=== PATIENT | male | born 1945 | race Caucasian/White ===

== ENCOUNTER 2020-05-14 18:57 | Inpatient (IN) ==
--- NOTE | 2020-05-14 19:09 | Emergency Department Note ---
Neuro HPI General Chief Complaint: Stroke Symptoms Stated Complaint: Stroke symptoms Time Seen by Provider: 05/14/20 19:03 Source: patient and family Mode of arrival: wheelchair Limitations: no limitations History of Present Illness HPI Narrative: Narrative: The patient presents with a right-sided facial droop that was present when he awoke this morning but was not present when he went to bed last night. He says that he feels like he is drooling out of that side. He denies headache or any weakness or numbness below the neck. He says he feels slightly dizzy, as in things are spinning. This is not affected by movement. He denies visual problems. He denies any other associated problems. There has been no fever On Anticoagulants: No Related Data Home Medications Medication Instructions Recorded Confirmed ESSENTIAL Daily 1 tab PO QDAY 05/14/20 05/14/20 Glucosamine 2,000 mg PO QDAY 05/14/20 05/14/20 amlodipine 10 mg PO QDAY 05/14/20 05/14/20 aspirin 81 mg PO QDAY 05/14/20 05/14/20 atorvastatin 40 mg PO HS 05/14/20 05/14/20 cholecalciferol (vitamin D3) 25 mcg PO QDAY 05/14/20 05/14/20 insulin aspart U-100 [Novolog 60 unit SUBCUT QDAY 05/14/20 05/14/20 U-100 Insulin aspart] lisinopril 20 mg PO QDAY 05/14/20 05/14/20 metoprolol succinate 25 mg PO QDAY 05/14/20 05/14/20 omega 0-kum-ami-fish oil [Fish Oil] 1 cap PO QDAY 05/14/20 05/14/20 Allergies Allergy/AdvReac Type Severity Reaction Status Date / Time tape Allergy Uncoded 05/14/20 18:58 Review of Systems ROS ROS Narrative: Narrative: All systems ED: reviewed and negative except as stated. 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) CAD (coronary artery disease) (Acute) BPH (benign prostatic hyperplasia) (Acute) Acute CVA (cerebrovascular accident) (Acute) Social History Smoking Status: Never smoker Exam Narrative Narrative: Narrative: General Limitations: no limitations General appearance: Present alert and in no apparent distress Head Head: Present atraumatic and normal inspection Eye Eye: Present normal appearance, PERRL and EOMI; Absent nystagmus ENT ENT: Present normal exam and mucous membranes moist Neck Neck: Present normal inspection, full ROM and trachea midline; Absent meningismus Chest Chest: Present normal inspection and symmetric chest wall rise Respiratory Respiratory: Present normal lung sounds bilaterally; Absent respiratory distress Cardiovascular Cardiovascular: Present regular rate and normal rhythm Expanded Cardiovascular Peripheral pulses: 2+: radial (R) and radial (L) Adbominal Abdominal: Present soft; Absent distention and tenderness Extremities Extremities: Present normal inspection and full ROM Back Back: Present full ROM Neurological Neurological: Present alert, oriented X3 and motor sensory deficit; Absent CN II-XII intact Expanded Neurological Patient oriented to: Present person, place and time Speech: Present fluid speech; Absent receptive aphasia, expressive aphasia and dysarthria CRANIAL NERVES: EOM function (II, III, IV, ): Normal, facial sensation (V): Normal, facial palsy (VII): Abnormal Right (Mild and seems to disappear when the patient smiles) and tongue deviation (XII): Normal CEREBELLAR FUNCTION: finger to nose: Normal Motor strength - LUE: 5/5 Motor strength - RUE: 5/5 Motor strength - LLE: 5/5 Motor strength - RLE: 5/5 SENSORY EXAM UPPER EXTREMITY: Normal: light touch SENSORY EXAM LOWER EXTREMITY: Normal: light touch Psychiatric Psychiatric: Present normal affect and normal mood Skin Skin: Present warm and dry Course Reevaluation(s) Reevaluation #1: I spoke with the hospitalist, Dr. Olmedo. He agreed to evaluate for local admission Time: 20:03 Vital Signs Vital signs: Vital Signs Temperature 97.7 F 05/14/20 18:59 Pulse Rate 91 H 05/14/20 18:59 Respiratory Rate 16 05/14/20 18:59 Blood Pressure 175/72 05/14/20 18:59 Pulse Oximetry (%) 99 05/14/20 18:59 Temperature 97.7 F 05/14/20 18:59 Pulse Rate 83 05/14/20 20:43 Respiratory Rate 22 05/14/20 20:43 Blood Pressure 132/68 05/14/20 20:31 Pulse Oximetry (%) 99 05/14/20 20:43 MDM MDM Narrative Medical decision making narrative: Narrative: The patient presents with mild right facial droop that does not involve the forehead. His symptoms were present upon waking but not before going to bed l ast night. Concern is this gentleman has had a mild stroke. He is outside the window for thrombolytics. Plan to obtain appropriate labs and imaging and if CT is negative, give antiplatelets. Lab Data Lab results reviewed: Yes I reviewed the patient's lab results. Result diagrams: 05/14/20 19:11 05/14/20 19:11 Labs: Lab Results 05/14/20 05/14/20 05/14/20 Range/Units 19:11 19:11 19:11 WBC 6.7 (4.50-11.00) K/mcL RBC 4.75 (4.63-6.08) M/mcL Hgb 15.6 (13.7-17.5) g/dL Hct 45.9 (40.1-51.0) % MCV 96.6 (80.0-100.0) fL MCH 32.8 (26.0-34.0) pg MCHC 34.0 (31.0-36.0) g/dL RDW 12.2 (11.5-14.5) % Plt Count 180 (140-440) K/mcL MPV 11.3 H (7.4-10.4) fL Gran % 51.2 (38.0-78.0) % Lymph % (Auto) 37.4 (15.5-49.0) % [place] % (Auto) 8.6 (1.0-12.0) % Eos % (Auto) 1.9 (0.0-7.0) % Baso % (Auto) 0.9 (0.0-2.0) % Gran # 3.44 (1.80-8.00) K/mcL Lymph # (Auto) 2.52 (1.50-4.80) K/mcL [place] # (Auto) 0.58 (0.10-0.90) K/mcL Eos # (Auto) 0.13 (0.00-0.70) K/mcL Baso # (Auto) 0.06 (0.00-0.30) K/mcL PT TNP INR TNP APTT TNP Sodium 132 L (133-145) mmol/L Potassium 4.3 (3.3-5.1) mmol/L Chloride 95 L (96-108) mmol/L Carbon Dioxide 23 (22-30) mmol/L Anion Gap 14.0 (8-16) BUN 19 (8-23) mg/dl Creatinine 1.0 (0.7-1.2) mg/dl GFR Calculation 73 Glucose 170 H (70-105) mg/dL Calcium 9.7 (8.6-10.4) mg/dl Total Bilirubin 0.7 (0.0-1.0) mg/dL AST 25 (0-37) U/l ALT 19 (0-40) U/l Alkaline Phosphatase 83 (39-117) U/L Troponin T (0-0.03) ng/ml Total Protein 7.5 (5.9-8.4) gm/dL Albumin 4.6 (3.2-5.2) gm/dL Globulin 2.9 (2.2-3.7) gm/dL Albumin/Globulin Ratio 1.6 (1.0-2.3) 05/14/20 Range/Units 19:11 WBC (4.50-11.00) K/mcL RBC (4.63-6.08) M/mcL Hgb (13.7-17.5) g/dL Hct (40.1-51.0) % MCV (80.0-100.0) fL MCH (26.0-34.0) pg MCHC (31.0-36.0) g/dL RDW (11.5-14.5) % Plt Count (140-440) K/mcL MPV (7.4-10.4) fL Gran % (38.0-78.0) % Lymph % (Auto) (15.5-49.0) % [place] % (Auto) (1.0-12.0) % Eos % (Auto) (0.0-7.0) % Baso % (Auto) (0.0-2.0) % Gran # (1.80-8.00) K/mcL Lymph # (Auto) (1.50-4.80) K/mcL [place] # (Auto) (0.10-0.90) K/mcL Eos # (Auto) (0.00-0.70) K/mcL Baso # (Auto) (0.00-0.30) K/mcL PT INR APTT Sodium (133-145) mmol/L Potassium (3.3-5.1) mmol/L Chloride (96-108) mmol/L Carbon Dioxide (22-30) mmol/L Anion Gap (8-16) BUN (8-23) mg/dl Creatinine (0.7-1.2) mg/dl GFR Calculation Glucose (70-105) mg/dL Calcium (8.6-10.4) mg/dl Total Bilirubin (0.0-1.0) mg/dL AST (0-37) U/l ALT (0-40) U/l Alkaline Phosphatase (39-117) U/L Troponin T < 0.01 (0-0.03) ng/ml Total Protein (5.9-8.4) gm/dL Albumin (3.2-5.2) gm/dL Globulin (2.2-3.7) gm/dL Albumin/Globulin Ratio (1.0-2.3) Radiology Data Radiology results reviewed: Yes I reviewed the patient's radiology results. EKG Data EKG #1: EKG attestation: Yes I reviewed and interpreted this EKG. and Yes There are no EKG findings of acute coronary syndrome EKG results narrative: Sinus, rate 82, normal axis, normal intervals, narrow complex QRS, no acute ST or T changes worrisome for acute infarction Discharge Plan Patient/Caregiver Discharge Instructions Pt seen by PRIVATE CLIENT ADVISOR/PA only: No Clinical Impression: Acute CVA (cerebrovascular accident) Patient Disposition: Xfer As Outpt/Obs ([facility]) Follow up with: No,PCP [Primary Care Provider] - Prescriptions: No Action amlodipine 10 mg tablet 10 mg PO QDAY RF: 0 aspirin 81 mg Tablet,Delayed Release (Dr/Ec) 81 mg PO QDAY RF: 0 atorvastatin 40 mg tablet 40 mg PO HS RF: 0 lisinopril 20 mg tablet 20 mg PO QDAY RF: 0 insulin aspart U-100 [Novolog U-100 Insulin aspart] 100 unit/mL solution 60 unit subcut QDAY RF: 0 omega 9-yvv-wsz-fish oil [Fish Oil] 1,000 mg (120 mg-180 mg) Capsule 1 cap PO QDAY RF: 0 Glucosamine 2,000 mg PO QDAY RF: 0 cholecalciferol (vitamin D3) 25 mcg 25 mcg PO QDAY RF: 0 metoprolol succinate tablet 25 mg PO QDAY RF: 0 ESSENTIAL Daily 1 tab PO QDAY RF: 0
[2020-05-14] MEDS ORDERED: ASPIRIN 81 MG TAB.CHEW CHEWED ONE (19:53)
[2020-05-14 20:04] LABS: Basophils # (Auto) 0.06 K/mcL (0.00-0.30); Basophils % (Auto) 0.9 % (0.0-2.0); Eosinophils # (Auto) 0.13 K/mcL (0.00-0.70); Eosinophils % (Auto) 1.9 % (0.0-7.0); Granulocytes % (Auto) 51.2 % (38.0-78.0); Hematocrit 45.9 % (40.1-51.0); Hemoglobin 15.6 g/dL (13.7-17.5); Lymphocytes # (Auto) 2.52 K/mcL (1.50-4.80); Lymphocytes % (Auto) 37.4 % (15.5-49.0); Mean Cell Volume 96.6 fL (80.0-100.0); Mean Platelet Volume 11.3 fL (7.4-10.4); Monocytes # (Auto) 0.58 K/mcL (0.10-0.90); Monocytes % (Auto) 8.6 % (1.0-12.0); Platelet Count 180 K/mcL (140-440); RBC 4.75 M/mcL (4.63-6.08); Red Cell Distribution Width 12.2 % (11.5-14.5); WBC 6.7 K/mcL (4.50-11.00)
[2020-05-14 20:25] LABS: ALT/SGPT 19 U/l (0-40); AST/SGOT 25 U/l (0-37); Albumin 4.6 gm/dL (3.2-5.2); Albumin/Globulin Ratio 1.6 (1.0-2.3); Alkaline Phosphatase 83 U/L (39-117); Bilirubin,Total 0.7 mg/dL (0.0-1.0); Blood Urea Nitrogen 19 mg/dl (8-23); Calcium 9.7 mg/dl (8.6-10.4); Carbon Dioxide 23 mmol/L (22-30); Globulin 2.9 gm/dL (2.2-3.7); Glomerular Filtration Rate 73; Glucose 170 mg/dL (70-105)
[2020-05-14 20:31] LABS: Chloride 95 mmol/L (96-108)
[2020-05-14] MEDS ORDERED: ONDANSETRON 4 MG/2 ML VIAL IV PRN ×2 (20:39→21:56)
[2020-05-14] MEDS ORDERED: DEXTROSE 50% 50 ML VIAL IV PRN ×2 (20:44→21:56)
[2020-05-14] MEDS ORDERED: 0.9 % SODIUM CHLORIDE 1,000 ML IV SCH (20:45)
[2020-05-14] MEDS ORDERED: DOCUSATE SODIUM 100 MG CAPSULE PO SCH (21:00)
[2020-05-14] MEDS ORDERED: hydrALAZINE 20 MG/ML VIAL IV PRN ×2 (21:02→21:56)
[2020-05-14 21:46] LABS: Prothrombin Time 13.5 sec (11.9-14.5)
[2020-05-14] MEDS ORDERED: 0.9 % SODIUM CHLORIDE 10 ML SYRINGE IV SCH (22:00)
[2020-05-14 22:03] LABS: Hemoglobin A1C 6.6 % HGB (4.0-6.0)
[2020-05-14] MEDS: 0.9 % SODIUM CHLORIDE 10 ML SYRINGE IV SCH (22:09)
[2020-05-14] MEDS: 0.9 % SODIUM CHLORIDE 1,000 ML IV SCH (22:09)
[2020-05-14] MEDS ORDERED: IOPAMIDOL 100 ML BOTTLE IV ONE (22:26)
--- NOTE | 2020-05-14 23:21 | Internal Med History&Physical ---
HPI History of Present Illness Patient information: Note initiated : 05/14/20 at 11:19 pm Service Date, if different from initiated Date: [] Patient: George Gabriel 75 y/o M admitted on 05/14/20 for Stroke symptoms. Chief Complaint: [] History of present illness: Patient is a 75-year-old male with a history of high blood pressure and diabetes who presented to the ER due to right-sided facial droop associated with mild dizziness. As per patient, this morning when he woke up, he found this problem. Otherwise, he denies headache, nausea, vomiting, fever, chills, chest pain, abdominal pain, dysuria, or changes in vision. He has never had similar problem in the past. In the ER, CT of head showed lacunar infarct. Aspirin 325 mg was given. When I saw this patient in the ER, other than the symptoms mentioned above, patient was fine. Denied recent travel or sick contact. 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) CAD (coronary artery disease) (Acute) BPH (benign prostatic hyperplasia) (Acute) Acute CVA (cerebrovascular accident) (Acute) Social History smoking status: Never smoker MEDS/ALLERGIES Home Medications and Allergies Home Medications Medication Instructions Recorded Confirmed Type ESSENTIAL Daily 1 tab PO QDAY 05/14/20 05/14/20 History Glucosamine 2,000 mg PO QDAY 05/14/20 05/14/20 History amlodipine 10 mg PO QDAY 05/14/20 05/14/20 History aspirin 81 mg PO QDAY 05/14/20 05/14/20 History atorvastatin 40 mg PO HS 05/14/20 05/14/20 History cholecalciferol (vitamin D3) 25 mcg PO QDAY 05/14/20 05/14/20 History insulin aspart U-100 [Novolog 60 unit SUBCUT QDAY 05/14/20 05/14/20 History U-100 Insulin aspart] lisinopril 20 mg PO QDAY 05/14/20 05/14/20 History metoprolol succinate 25 mg PO QDAY 05/14/20 05/14/20 History omega 6-uxq-ugh-fish oil [Fish Oil] 1 cap PO QDAY 05/14/20 05/14/20 History Allergies Allergy/AdvReac Type Severity Reaction Status Date / Time tape Allergy Uncoded 05/14/20 18:58 EXAM Constitutional Vitals: Temp Pulse Resp BP Pulse Ox 97.7 F 74 16 125/69 96 05/14/20 21:54 05/14/20 21:54 05/14/20 21:54 05/14/20 21:54 05/14/20 21:54 Additional findings Additional findings: General - No acute distress Eyes - PERRLA, EOM intact ENT no rhinorrhea, no noticeable or palpable swelling, no redness or rash around throat or on face Neck supple, no JVD, no thyromegaly Respiratory: Lungs - CTA, no use of accessary muscles. Cardiovascular - RRR no m/r/g, GI - Normal bowel sounds, no distended, soft. Extremeties - No edema, cyanosis or clubbing Hemo/lymphatic/immune no lymphadenopathy Neurological Alert and oriented x 3, right nasolabial fold shallow. Otherwise strength and sensation symmetrical. Psychiatry flat affect DATA Data Completed and Pending Labs: Labs from last 24 hours 05/14/20 05/14/20 05/14/20 20:20 19:11 19:11 WBC RBC Hgb Hct MCV MCH MCHC RDW Plt Count MPV Gran % Lymph % (Auto) [place] % (Auto) Eos % (Auto) Baso % (Auto) Gran # Lymph # (Auto) [place] # (Auto) Eos # (Auto) Baso # (Auto) PT 13.5 INR 1.0 APTT 35 Sodium Potassium Chloride Carbon Dioxide Anion Gap BUN Creatinine GFR Calculation Glucose Hemoglobin A1c 6.6 H Estim Average Glucose 143 Calcium Total Bilirubin AST ALT Alkaline Phosphatase Troponin T < 0.01 Total Protein Albumin Globulin Albumin/Globulin Ratio 05/14/20 05/14/20 05/14/20 19:11 19:11 19:11 WBC 6.7 RBC 4.75 Hgb 15.6 Hct 45.9 MCV 96.6 MCH 32.8 MCHC 34.0 RDW 12.2 Plt Count 180 MPV 11.3 H Gran % 51.2 Lymph % (Auto) 37.4 [place] % (Auto) 8.6 Eos % (Auto) 1.9 Baso % (Auto) 0.9 Gran # 3.44 Lymph # (Auto) 2.52 [place] # (Auto) 0.58 Eos # (Auto) 0.13 Baso # (Auto) 0.06 PT TNP INR TNP APTT TNP Sodium 132 L Potassium 4.3 Chloride 95 L Carbon Dioxide 23 Anion Gap 14.0 BUN 19 Creatinine 1.0 GFR Calculation 73 Glucose 170 H Hemoglobin A1c Estim Average Glucose Calcium 9.7 Total Bilirubin 0.7 AST 25 ALT 19 Alkaline Phosphatase 83 Troponin T Total Protein 7.5 Albumin 4.6 Globulin 2.9 Albumin/Globulin Ratio 1.6 A/P Narrative A/P Narrative: 1. Stroke/TIA CT of head without contrast -ischemic lacunar infarct Not a candidate of TPA Patient has been on aspirin Discussed with the neurology Dr Apodaca at the [facility] in [place] who suggested to CT angiogram head and neck and MRI. Aspirin and Plavix for 3 weeks and then discontinue aspirin. EKG-sinus rhythm Echocardiogram Lipid panel, hemoglobin A1c, TSH, INR Aspirin 325 mg once was given in the ER Continue aspirin, Plavix and Lipitor Hydralazine as needed (as per Dr. Apodaca, SBP should not be greater than 180) N.p.o. until passing swallow screen PT OT ST 2. CAD, s/p stenting Aspirin, Plavix, Lipitor 3. HTN Amlodipine and lisinopril on hold Continue metoprolol Hydralazine as needed 4. DM (ADRIANA, treated as DM type 1) with neuropathy Continue insulin pump Insulin sliding scale 5. BPH Continue home medication 6. DVT prophylaxis: Lovenox 7. CODE STATUS: DNR and DNI Time Spent With Patient Time: Total time spent is greater than 50% in coordination of care (as documented) at patient's floor/unit and/or counseling patient:
--- NOTE | 2020-05-14 23:33 | Event Note ---
Event Note Event Note: Parties in Attendance: Patient and Decisional Capacity: Yes POLST form completed: not I explained the process regarding CPR and intubation. Both agreed with DNR/DNI.
[2020-05-15] MEDS ORDERED: INSULIN LISPRO 1 UNIT/0.01 ML UNIT SQ SCH
[2020-05-15] MEDS: INSULIN LISPRO 1 UNIT/0.01 ML UNIT SQ SCH ×4 (03:12→18:19)
[2020-05-15] MEDS: 0.9 % SODIUM CHLORIDE 10 ML SYRINGE IV SCH ×3 (06:04→21:49)
[2020-05-15 06:37] LABS: Appearance,Urine CLEAR; Bilirubin,Urine NEG (NEG); Color,Urine STRAW; Culture Indicated,Urine NO; Glucose,Urine (UA) NEGATIVE (NEG); Ketones,Urine 20 mg/dL (NEG); Leukocyte Esterase,Urine NEG /uL (NEG); Nitrate,Urine NEG (NEG); Protein,Urine NEG (NEG); Specific Gravity,Urine 1.023 (1.000-1.035); Urine Blood NEG mg/dL (<0.03); Urobilinogen,Urine NEG (NEG)
[2020-05-15 07:09] LABS: Basophils # (Auto) 0.04 K/mcL (0.00-0.30); Basophils % (Auto) 0.7 % (0.0-2.0); Eosinophils # (Auto) 0.24 K/mcL (0.00-0.70); Eosinophils % (Auto) 4.3 % (0.0-7.0); Granulocytes % (Auto) 43.7 % (38.0-78.0); Hematocrit 41.7 % (40.1-51.0); Hemoglobin 14.2 g/dL (13.7-17.5); Lymphocytes # (Auto) 2.32 K/mcL (1.50-4.80); Lymphocytes % (Auto) 41.5 % (15.5-49.0); Mean Cell Volume 96.3 fL (80.0-100.0); Mean Corpuscular HGB Conc 34.1 g/dL (31.0-36.0); Mean Platelet Volume 11.1 fL (7.4-10.4); Monocytes # (Auto) 0.55 K/mcL (0.10-0.90); Monocytes % (Auto) 9.8 % (1.0-12.0); Platelet Count 160 K/mcL (140-440); RBC 4.33 M/mcL (4.63-6.08); Red Cell Distribution Width 12.1 % (11.5-14.5); WBC 5.6 K/mcL (4.50-11.00)
[2020-05-15 07:31] LABS: Prothrombin Time 13.4 sec (11.9-14.5)
[2020-05-15] MEDS: ENOXAPARIN 40 MG/0.4 ML SYRINGE SQ SCH (08:22)
[2020-05-15] MEDS: ASPIRIN 81 MG TAB.CHEW PO SCH (08:22)
[2020-05-15] MEDS: DOCUSATE SODIUM 100 MG CAPSULE PO SCH ×2 (08:22→21:48)
[2020-05-15] MEDS: CLOPIDOGREL 75 MG TABLET PO SCH (08:22)
[2020-05-15] MEDS: METOPROLOL SUCCINATE 25 MG TAB.XL.24H PO SCH (08:22)
[2020-05-15 08:28] LABS: Thyroid Stimulating Hormone 3.34 uIU/ml (0.27-5.01); proBNP 212.8 pg/ml (0-450)
[2020-05-15 08:40] LABS: ALT/SGPT 15 U/l (0-40); AST/SGOT 21 U/l (0-37); Albumin 3.9 gm/dL (3.2-5.2); Albumin/Globulin Ratio 1.6 (1.0-2.3); Alkaline Phosphatase 64 U/L (39-117); Bilirubin,Total 0.8 mg/dL (0.0-1.0); Blood Urea Nitrogen 13 mg/dl (8-23); Calcium 8.9 mg/dl (8.6-10.4); Carbon Dioxide 23 mmol/L (22-30); Chloride 101 mmol/L (96-108); Globulin 2.5 gm/dL (2.2-3.7); Glomerular Filtration Rate 87; Glucose 92 mg/dL (70-105); HDL Cholesterol 72 mg/dl (>40); LDL Cholesterol,Calculated 36 mg/dl (SEE CHART); Non-HDL Cholesterol 46 (LDL TARGET+30); Triglycerides 51 mg/dl (<150)
[2020-05-15] MEDS ORDERED: METOPROLOL SUCCINATE 25 MG PO SCH (09:00)
[2020-05-15] MEDS ORDERED: NON FORMULARY MEDICATION 1 DOSE MISCELL (Aspirin 81 MG) PO SCH (09:00)
[2020-05-15] MEDS ORDERED: ENOXAPARIN 40 MG/0.4 ML SYRINGE SQ SCH (09:00)
[2020-05-15] MEDS ORDERED: CLOPIDOGREL 75 MG TABLET PO SCH (09:00)
--- NOTE | 2020-05-15 10:05 | XRay Report ---
HISTORY: New onset facial weakness and recent stent placement FINDINGS: The lungs are clear and well expanded. The heart size is normal. No radiopaque stent is identified within the thorax. There is no congestive heart failure. Mediastinum, carolyn and pleura are normal. There has been no significant change since 12/12/16. IMPRESSION: Normal chest Interpreted and Authenticated by: Tae Montemayor 05/15/20
--- NOTE | 2020-05-15 10:08 | Cat Scan Report ---
History: Stroke with New onset right-sided facial weakness TECHNIQUE: The brain was imaged without contrast at 2.5 mm intervals. Sagittal and coronal reformats were created. FINDINGS: In the left davies radiata lateral to the mid body left lateral ventricle there is a 7 mm low-attenuation structure. This could be an infarct. It is in the distribution which could cause a right facial weakness. No cortical infarct is detected. There are several areas of patchy decreased attenuation in the centrum semiovale throughout the frontal and parietal lobes bilaterally consistent with age-related ischemia or degeneration. There is also mild generalized atrophy. No hemorrhage or mass effect are present. The ventricles are normal in size allowing for the atrophy. Incidentally noted is ossification of the falx. IMPRESSION: Moderate white matter ischemia or degeneration in the frontal and parietal lobes bilaterally. 7 mm lacunar infarct in the left davies radiata Dr. Beverly was called with results Interpreted and Authenticated by: Tae Montemayor 05/15/20
--- NOTE | 2020-05-15 10:22 | Cat Scan Report ---
History: New stroke symptoms with right facial weakness TECHNIQUE: Following injection of intravenous nonionic contrast the patient was scanned during the arterial phase from the aortic arch to the top of the head. Sagittal and coronal reformats of the head and neck were created separately. 3-D volume rendered images were created of the carotid arteries. Radiation exposure was limited using dose reduction technology. FINDINGS: NECK: The aortic arch great vessels arising from the aorta are normal in caliber. There is moderate amount of plaque at the origin of the right subclavian artery. This is not causing stenosis. Moderate amount calcified plaque is present in the carotid bifurcations bilaterally. These are causing less than 25% stenosis. There is no evidence of ulcerated plaque or thrombus. Remainder the common, internal and external carotids are normal. The left vertebral artery is dominant. The right vertebral artery is hypoplastic. There is an incidental 9 mm round low-attenuation nodule in the left lobe of the thyroid. Brain: Moderate amount of calcified plaque is present in the cavernous portions of both internal carotids. These are causing up to 50% stenoses. The supraclinoid portions of both internal carotids are normal in caliber and symmetric. The left vertebral arteries supplies nearly all the blood flow to the basilar artery. Right vertebral supplies the right posterior inferior cerebellar. There is no intracranial vascular occlusion or hemodynamically significant stenosis. There is also no thrombosis. No aneurysm or vascular malformation are present. The anterior and middle cerebral arteries are normal. IMPRESSION: Atherosclerosis in the carotid bifurcations bilaterally and in the cavernous portions of both internal carotids. These are not causing hemodynamically significant stenosis. No evidence of thrombosis or vascular occlusion Interpreted and Authenticated by: Tae Montemayor 05/15/20
[2020-05-15] MEDS: 0.9 % SODIUM CHLORIDE 1,000 ML IV SCH (15:18)
--- NOTE | 2020-05-15 18:30 | Internal Med Progress Note ---
SUBJECTIVE Subjective Patient information: Note initiated : 05/15/20 at 6:26 pm Service Date, if different from initiated Date: [] Patient: George Gabriel 75 y/o M admitted on 05/14/20 for Stroke symptoms. Chief Complaint: [] History of present illness: Patient is a 75-year-old male with a history of high blood pressure and diabetes who presented to the ER due to right-sided facial droop associated with mild dizziness. As per patient, this morning when he woke up, he found this problem. Otherwise, he denies headache, nausea, vomiting, fever, chills, chest pain, abdominal pain, dysuria, or changes in vision. He has never had similar problem in the past. In the ER, CT of head showed lacunar infarct. Aspirin 325 mg was given. When I saw this patient in the ER, other than the symptoms mentioned above, patient was fine. Denied recent travel or sick contact. 05/15 Patient still has a right lower facial weakness and complaining of drooping sometimes and dizziness. Denies headache. No weakness or numbness over both legs and the arms. Vital signs are stable CT angio head and neck no hemodynamic significance. Waiting for MRI. Review of Systems All systems: reviewed and no additional remarkable complaints except as stated Constitutional Vitals: Vital Signs Temp Pulse Resp BP Pulse Ox 98.3 F 70 18 105/89 99 05/15/20 16:01 05/15/20 18:00 05/15/20 18:00 05/15/20 18:00 05/15/20 18:00 Period Temp Pulse Resp BP Sys/Whitney Pulse Ox Last 24 Hr 97.7 F-99.0 F 56-92 12-27 105-175/59-98 94-100 Intake and Output 05/15/20 05/15/20 05/15/20 05:59 13:59 21:59 Intake Total 2080 420 Output Total 1400 600 500 Balance -1400 1480 -80 Weight 104.916 kg Intake & Output: Intake & Output 05/15/20 05/15/20 05/15/20 05:59 13:59 21:59 Intake Total 2080 420 Output Total 1400 600 500 Balance -1400 1480 -80 Weight 104.916 kg Intake: IV 1000 Sodium Chloride 0.9% 1,000 ml @ 1000 75 mls/hr IV .[id number] JASON Rx#: [id number] Oral 1080 420 Output: Void Amount 1400 600 500 Other: Meal Breakfast Percent of Meal Consumed 100% Feeding Ability Independent Urine Appearance Clear Clear Urine Color Dark Yellow Dark Yellow Bright Yellow Urine Odor Strong # Bowel Movements 0 Additional findings Additional findings: General - No acute distress Eyes - PERRLA, EOM intact ENT no rhinorrhea, no noticeable or palpable swelling, no redness or rash around throat or on face Neck supple, no JVD, no thyromegaly Respiratory: Lungs - CTA, no use of accessary muscles. Cardiovascular - RRR no m/r/g, GI - Normal bowel sounds, no distended, soft. Extremeties - No edema, cyanosis or clubbing Hemo/lymphatic/immune no lymphadenopathy Neurological Alert and oriented x 3, right nasolabial fold shallow. Otherwise strength and sensation symmetrical. Psychiatry flat affect OBJ DATA Labs CBC & Chem 7: 05/15/20 05:40 05/15/20 05:40 Labs: Abnormal Lab Results 05/15/20 05/15/20 05/14/20 05:40 05:13 19:11 RBC 4.33 L MPV 11.1 H Sodium Chloride Glucose Hemoglobin A1c 6.6 H Urine Ketones 20 A 05/14/20 05/14/20 19:11 19:11 RBC MPV 11.3 H Sodium 132 L Chloride 95 L Glucose 170 H Hemoglobin A1c Urine Ketones Meds: Medications Aspirin (Aspirin) 81 mg PO DAILY [facility] Last Admin: 05/15/20 08:22 Dose: 81 mg Documented by: Atorvastatin Calcium (Lipitor) 40 mg PO [facility] Clopidogrel Bisulfate (Plavix) 75 mg PO DAILY [facility] Last Admin: 05/15/20 08:22 Dose: 75 mg Documented by: Dextrose (Dextrose 50%) 0 ml IV UD PRN PRN Reason: Hypoglycemia Diagnostic Test (Pha) (Accu-Chek) 1 each FS Q6 [facility] Last Admin: 05/15/20 18:20 Dose: 1 each Documented by: Docusate Sodium (Colace) 100 mg PO BID [facility] Last Admin: 05/15/20 08:22 Dose: 100 mg Documented by: Enoxaparin Sodium (Lovenox) 40 mg SQ DAILY [facility] Last Admin: 05/15/20 08:22 Dose: 40 mg Documented by: Hydralazine HCl (Apresoline) 10 mg IV Q4-6HP PRN PRN Reason: Hypertension Insulin Human Lispro (Humalog) 0 unit SQ Q6 [facility]; Protocol Last Admin: 05/15/20 18:19 Dose: Not Given Documented by: Metoprolol Succinate (Toprol Xl) 25 mg PO DAILY [facility] Last Admin: 05/15/20 08:22 Dose: 25 mg Documented by: Ondansetron HCl (Zofran) 4 mg IV Q4HP PRN; Protocol PRN Reason: Nausea And Vomiting Sodium Chloride (Saline Flush) 10 ml IV Q8 [facility] Last Admin: 05/15/20 14:45 Dose: 10 ml Documented by: A/P Narrative A/P Narrative: 1. Stroke/TIA CT of head without contrast -ischemic lacunar infarct Not a candidate of TPA Patient has been on aspirin Discussed with the neurology Dr Apodaca at the [facility] in [place] who s uggested to CT angiogram head and neck and MRI. Aspirin and Plavix for 3 weeks and then discontinue aspirin. EKG-sinus rhythm Echocardiogram-pending INR 1.0, hemoglobin 6.6, LDL 36, HDL 72, TSH 3.34 Aspirin 325 mg once was given in the ER Continue aspirin, Plavix and Lipitor Hydralazine as needed (as per Dr. Apodaca, SBP should not be greater than 180) Diabetic diet (he passed bedside swallow eval by nurse) PT OT ST MRI brain ordered 2. CAD, s/p stenting Aspirin, Plavix, Lipitor 3. HTN Amlodipine and lisinopril on hold Continue metoprolol Hydralazine as needed 4. DM (ADRIANA, treated as DM type 1) with neuropathy Hemoglobin A1c 6.6 Continue insulin pump Insulin sliding scale 5. BPH Continue home medication 6. DVT prophylaxis: Lovenox 7. CODE STATUS: DNR and DNI Time Spent With Patient Time: Total time spent is greater than 50% in coordination of care (as documented) at patient's floor/unit and/or counseling patient: QUALITY Stroke Symptom Onset Unknown: No VTE Deep Vein Thrombosis/Pulmonary Embolism Present on Admission: No
[2020-05-15] MEDS ORDERED: ATORVASTATIN 40 MG TABLET PO SCH ×2 (21:00)
[2020-05-16] MEDS: 0.9 % SODIUM CHLORIDE 10 ML SYRINGE IV SCH (05:48)
[2020-05-16] MEDS: INSULIN LISPRO 1 UNIT/0.01 ML UNIT SQ SCH ×3 (05:52→12:16)
[2020-05-16 06:32] LABS: Basophils # (Auto) 0.05 K/mcL (0.00-0.30); Basophils % (Auto) 0.9 % (0.0-2.0); Eosinophils # (Auto) 0.19 K/mcL (0.00-0.70); Eosinophils % (Auto) 3.3 % (0.0-7.0); Granulocytes % (Auto) 46.8 % (38.0-78.0); Hematocrit 42.5 % (40.1-51.0); Hemoglobin 14.7 g/dL (13.7-17.5); Lymphocytes # (Auto) 2.23 K/mcL (1.50-4.80); Lymphocytes % (Auto) 38.6 % (15.5-49.0); Mean Cell Volume 96.2 fL (80.0-100.0); Mean Corpuscular HGB Conc 34.6 g/dL (31.0-36.0); Monocytes % (Auto) 10.4 % (1.0-12.0); Platelet Count 151 K/mcL (140-440); RBC 4.42 M/mcL (4.63-6.08); Red Cell Distribution Width 11.9 % (11.5-14.5); WBC 5.8 K/mcL (4.50-11.00)
[2020-05-16 07:12] LABS: ALT/SGPT 15 U/l (0-40); AST/SGOT 22 U/l (0-37); Albumin 3.8 gm/dL (3.2-5.2); Albumin/Globulin Ratio 1.5 (1.0-2.3); Alkaline Phosphatase 65 U/L (39-117); Bilirubin,Total 0.6 mg/dL (0.0-1.0); Blood Urea Nitrogen 11 mg/dl (8-23); Calcium 8.7 mg/dl (8.6-10.4); Carbon Dioxide 22 mmol/L (22-30); Chloride 100 mmol/L (96-108); Globulin 2.5 gm/dL (2.2-3.7); Glomerular Filtration Rate 87; Glucose 119 mg/dL (70-105)
[2020-05-16] MEDS: METOPROLOL SUCCINATE 25 MG TAB.XL.24H PO SCH (08:15)
[2020-05-16] MEDS: CLOPIDOGREL 75 MG TABLET PO SCH (08:15)
[2020-05-16] MEDS: ENOXAPARIN 40 MG/0.4 ML SYRINGE SQ SCH (08:15)
[2020-05-16] MEDS: ASPIRIN 81 MG TAB.CHEW PO SCH (08:15)
[2020-05-16] MEDS: DOCUSATE SODIUM 100 MG CAPSULE PO SCH (08:19)
--- NOTE | 2020-05-16 10:15 | Magnetic Resonance Report ---
CLINICAL INFORMATION: Right facial weakness. COMPARISON: Head CT 05/14/2020 TECHNIQUE:Sagittal T1 FLAIR, axial T1 FLAIR, T2 FLAIR propeller, T2 propeller, gradient, diffusion, ADC and coronal T2 weighted images were acquired. FINDINGS: The ventricles, sulci, fissures and cisterns are symmetrically enlarged patible with mild age-related atrophy - no extra-axial fluid collection or mass is appreciated. A 14 mm region of restricted diffusion in the posterior deep left frontal white matter is compatible with acute nonhemorrhagic lacunar infarct. Moderate patchy chronic ischemic changes are noted in the deep cerebral white matter. Two remote lacunar infarcts seen in the posterior left frontal white matter near vertex are 4 mm and 6 mm respectively. Signal void in the intracerebral arteries, extra-axial cranial nerves, pituitary orbits are all normal. The two polyps in the inferior right maxillary sinus: 23 mm and 16 mm are unchanged IMPRESSION: 1. 14 mm nonhemorrhagic infarct in the posterior left frontal lobe deep white matter. 2. Mild atrophy and chronic ischemic changes in the cerebral white matter. 3. Two remote lacunar infarcts in the left frontal white matter near vertex six and 4 mm respectively 4. Two polyps right maxillary sinus: 23 mm and 16 mm respectively. Interpreted and Authenticated by: Ez Claros 05/16/20
--- NOTE | 2020-05-16 13:42 | Discharge Summary ---
Discharge Provider Provider Patient information: Note initiated : 05/16/20 at 1:39 pm Service Date, if different from initiated Date: [] Patient: George Gabriel 75 y/o M admitted on 05/14/20 for Stroke symptoms. Chief Complaint: [] Date of admission: 05/14/20 21:46 Discharge date: 05/16/20 Primary care physician: PCP No Consults: 05/14/20 Consult to Physician [CONS] Stat Comment: Consulting Provider: Ramy Olmedo Reason For Exam: Physician to Consult Discharge Meds Discharge Medications Home Medications amlodipine 10 mg PO QDAY 05/14/20 [History Confirmed 05/14/20 Last Taken 05/14/20 07:00] aspirin 81 mg PO QDAY 05/14/20 [History Confirmed 05/14/20 Last Taken 05/14/20 07:00] atorvastatin 40 mg PO HS 05/14/20 [History Confirmed 05/14/20 Last Taken 05/13/20 22:00] insulin aspart U-100 [Novolog U-100 Insulin aspart] 60 unit SUBCUT QDAY 05/14/20 [History Confirmed 05/14/20 Last Taken Unknown] lisinopril 20 mg PO QDAY 05/14/20 [History Confirmed 05/14/20 Last Taken 05/14/20 07:00] ESSENTIAL Daily 1 tab PO DAILY 05/15/20 [History Confirmed 05/15/20 Last Taken 05/14/20 07:00] cholecalciferol (vitamin D3) 1,000 unit PO DAILY 05/15/20 [History Confirmed 05/15/20 Last Taken 05/14/20 07:00] glucosamine sulfate 2,000 mg PO DAILY 05/15/20 [History Confirmed 05/15/20 Last Taken 05/14/20 07:00] metoprolol succinate 25 mg PO QDAY 05/15/20 [History Confirmed 05/15/20 Last Taken 05/14/20 07:00] clopidogrel 75 mg PO DAILY #30 tab 05/16/20 [Rx Last Taken Unknown] COURSE Hospital Course Hospital course: 1. Stroke/TIA CT of head without contrast -ischemic lacunar infarct Not a candidate of TPA Patient has been on aspirin Discussed with the neurology Dr Apodaca at the [facility] in [place] who suggested to CT angiogram head and neck and MRI. Aspirin and Plavix for 3 weeks and then discontinue aspirin. EKG-sinus rhythm Echocardiogram- pending INR 1.0, hemoglobin 6.6, LDL 36, HDL 72, TSH 3.34 Aspirin 325 mg once was given in the ER Continue aspirin (for 3 weeks), Plavix and Lipitor Diabetic diet (he passed bedside swallow eval by nurse) PT OT ok to go home. ST - passed swallow eval MRI brain - 14 mm nonhemorrhagic infarct in the posterior left frontal lobe deep white matter. Continue Plavix and Lipitor. Continue aspirin for 3 weeks. Follow with the neurologist at the PCP 2. CAD, s/p stenting Aspirin, Plavix, Lipitor Follow with a photo tube assembler and PCP 3. HTN Resume home medication Follow with the PCP 4. DM (ADRIANA, treated as DM type 1) with neuropathy Hemoglobin A1c 6.6 Continue insulin pump Insulin sliding scale Follow with the PCP 5. BPH Continue home medication Follow with PCP Patient is a 75-year-old male with a history of high blood pressure and diabetes who presented to the ER due to right-sided facial droop associated with mild dizziness. As per patient, this morning when he woke up, he found this problem. Otherwise, he denies headache, nausea, vomiting, fever, chills, chest pain, a bdominal pain, dysuria, or changes in vision. He has never had similar problem in the past. In the ER, CT of head showed lacunar infarct. Aspirin 325 mg was given. When I saw this patient in the ER, other than the symptoms mentioned above, patient was fine. Denied recent travel or sick contact. 05/15 Patient still has a right lower facial weakness and complaining of drooping sometimes and dizziness. Denies headache. No weakness or numbness over both legs and the arms. Vital signs are stable CT angio head and neck no hemodynamic significance. Waiting for MRI. 05/16 Patient does not have any complaints today. Vital signs are stable. PT OT okay to home. Passed swallow eval by ST. patient will be discharged to home to follow with neurology and PCP. He needs to take Lipitor and Plavix. Continue aspirin for 3 weeks. Call PCP for medical issues. Discharge diagnosis: stroke Time Spent with Patient Time attestation: Total time spent providing and/or coordinating discharge services: EXAM Constitutional Vitals: Temp Pulse Resp BP Pulse Ox 97.8 F 93 H 18 136/84 98 05/16/20 12:18 05/16/20 08:01 05/16/20 12:18 05/16/20 12:18 05/16/20 12:18 Additional findings Additional findings: General - No acute distress Eyes - PERRLA, EOM intact ENT no rhinorrhea, no noticeable or palpable swelling, no redness or rash around throat or on face Neck supple, no JVD, no thyromegaly Respiratory: Lungs - CTA, no use of accessary muscles. Cardiovascular - RRR no m/r/g, GI - Normal bowel sounds, no distended, soft. Extremeties - No edema, cyanosis or clubbing Hemo/lymphatic/immune no lymphadenopathy Neurological Alert and oriented x 3, right nasolabial fold shallow. Otherwise strength and sensation symmetrical. Psychiatry flat affect Discharge Data Data Completed and Pending Labs on day of discharge: Labs from last 24 hours 05/16/20 05/16/20 05:00 05:00 WBC 5.8 RBC 4.42 L Hgb 14.7 Hct 42.5 MCV 96.2 MCH 33.3 MCHC 34.6 RDW 11.9 Plt Count 151 MPV 11.0 H Gran % 46.8 Lymph % (Auto) 38.6 [place] % (Auto) 10.4 Eos % (Auto) 3.3 Baso % (Auto) 0.9 Gran # 2.71 Lymph # (Auto) 2.23 [place] # (Auto) 0.60 Eos # (Auto) 0.19 Baso # (Auto) 0.05 Sodium 135 Potassium 3.9 Chloride 100 Carbon Dioxide 22 Anion Gap 13.0 BUN 11 Creatinine 0.8 GFR Calculation 87 Glucose 119 H Calcium 8.7 Total Bilirubin 0.6 AST 22 ALT 15 Alkaline Phosphatase 65 Total Protein 6.3 Albumin 3.8 Globulin 2.5 Albumin/Globulin Ratio 1.5 Discharge Plan Patient/Caregiver Discharge Instructions Activity: increase activity as tolerated Diet: Consistent Carbohydrate Instructions: Ischemic Stroke (GEN) Activity Restrictions/Additional Instructions: This discharge packet is provided to you to help keep you informed about your care. We want to ensure you get everything you need when you go home. You will also be receiving a call from us in a few days to follow up with you and see how you are doing since your discharge. This gives us a chance to listen to any concerns you maybe experiencing since you were discharged or any additional needs you may have, as well as providing us feedback on your care experience. We strive to always provide excellent care and thank you for your feedback and for choosing [facility]. Prescriptions: New clopidogrel 75 mg Tablet 75 mg PO DAILY Qty: 30 RF: 0 Continued amlodipine 10 mg tablet 10 mg PO QDAY RF: 0 aspirin 81 mg Tablet,Delayed Release (Dr/Ec) 81 mg PO QDAY RF: 0 atorvastatin 40 mg tablet 40 mg PO HS RF: 0 lisinopril 20 mg tablet 20 mg PO QDAY RF: 0 insulin aspart U-100 [Novolog U-100 Insulin aspart] 100 unit/mL solution 60 unit subcut QDAY RF: 0 metoprolol succinate 25 mg Tablet Extended Release 24 Hr 25 mg PO QDAY RF: 0 cholecalciferol (vitamin D3) 25 mcg (1,000 unit) Tablet 1,000 unit PO DAILY RF: 0 glucosamine sulfate 1,000 mg Capsule 2,000 mg PO DAILY RF: 0 ESSENTIAL Daily 18-0.4 mg Tablet 1 tab PO DAILY RF: 0 Discontinued omega 3-zcp-zuz-fish oil [Fish Oil] 1,000 mg (120 mg-180 mg) Capsule 1 cap PO QDAY RF: 0 Follow Up Plan Follow up with: Alex Tabares PA-C [Physician Signal Worker Helper] - ([facility] will contact you to schedule an appointment after reviewing your hospital stay.) No,PCP [Primary Care Provider] - Unknown [Outside] (F/u with pcp within one week and neurology within one week. ) Patient Disposition: Home, Self-Care Discharge Orders: Discharge Order (Routine); Ordered 05/16/20 Ordered By: Ramy CASEY VTE Deep Vein Thrombosis/Pulmonary Embolism Present on Admission: No
== END 2020-05-16 15:05 | disposition home or self-care (01) | DRG 66 ==
LOC: ED 18:57 → ICU 21:46
PROVIDERS: ADMIT Internal Medicine; ATTEND Internal Medicine